=== PATIENT | male | born 1950 | race Caucasian/White ===

== ENCOUNTER 2022-02-23 13:41 | Inpatient (IN) | payer MEDICARE, OTHER, SELFPAY ==
[~2022-02-23] VITALS: Ht 180.3 cm; Wt 82.0 kg
[~2022-02-23 13:41] MED LIST: ALLO100T PO; FLUO20CA39 PO; HYDR-4383 PO; HYDR12.55 PO; LEVO25TA2 PO
[2022-02-23] MEDS ORDERED: albuterol 2.5 MG/3 ML nebule CONTNEB STA (14:52)
[2022-02-23] MEDS ORDERED: methylPREDNISolone sod succ 125mg/2ml vial IV ONE (14:55)
[2022-02-23] MEDS ORDERED: ringers solution, lacted 1,000 ML IV ONE (14:55)
[2022-02-23] MEDS ORDERED: ipratropium 0.5 MG/2.5ML nebule IH ONE (14:55)
[2022-02-23 16:11] LABS: BASOPHILS % (AUTO) 0.3 % (0-1); EOSINOPHILS % (AUTO) 0.1 % (0-6); HEMATOCRIT 47.2 % (42.0-52.0); HEMOGLOBIN 16.1 g/dl (14.0-17.9); LYMPHOCYTES % (AUTO) 7.6 % (21-51); MEAN CORPUSCULAR HEMOGLOBIN 30.6 PG (27.0-31.0); MEAN CORPUSCULAR HGB CONC 34.2 g/dL (33.0-36.5); MEAN CORPUSCULAR VOLUME 89.5 FL (78-98); MEAN PLATELET VOLUME 8.8 FL (7.4-10.4); MONOCYTES # (AUTO) 0.9 X10'3 (0-0.9); MONOCYTES % (AUTO) 6.9 % (2-12); NEUTROPHILS # (AUTO) 11.6 X10'3 (1.8-7.7); NEUTROPHILS % (AUTO) 85.1 % (42-75); PLATELET COUNT 174 X10'3 (140-440); RED BLOOD COUNT 5.27 X10'6 (4.70-6.10); RED CELL DISTRIBUTION WIDTH 14.2 % (11.5-14.5); WHITE BLOOD COUNT 13.6 X10'3 (4.5-11.0)
[2022-02-23 17:14] LABS: APTT 23 SECONDS (22-32); D-DIMER < 0.19 MG/L FEU (0-0.50)
[2022-02-23 17:18] LABS: ALANINE AMINOTRANSFERASE 20 U/L (12-78); ALBUMIN 3.5 G/DL (3.4-5.0); ALKALINE PHOSPHATASE 67 IU/L (46-116); ANION GAP 11 (8-16); ASPARTATE AMINO TRANSFERASE 22 U/L (10-37); BILIRUBIN,TOTAL 0.9 MG/DL (0.1-1.0); BLOOD UREA NITROGEN 30 MG/DL (7-18); BUN/CREATININE RATIO 27.8 (5.4-32.0); CALCIUM 8.9 MG/DL (8.5-10.1); CHLORIDE 102 MMOL/L (99-107); CREATININE 1.08 MG/DL (0.60-1.10); GLUCOSE 118 MG/DL (70-104); MAGNESIUM 1.7 MG/DL (1.5-2.4); PHOSPHORUS 1.3 MG/DL (2.3-4.5); SODIUM 139 MMOL/L (135-145); TOTAL CARBON DIOXIDE 25.7 MMOL/L (24-32); TOTAL PROTEIN 7.1 G/DL (6.4-8.2); eGFR 68 ML/MIN
[2022-02-23 17:20] LABS: POTASSIUM 2.8 MMOL/L (3.5-5.1)
[2022-02-23] MEDS ORDERED: magnesium 2GM in 50ml NS 50 ML IV ONE (17:25)
[2022-02-23] MEDS ORDERED: potassium Cl 10 mEq/100mL bag IV ONE (17:25)
[2022-02-23] MEDS ORDERED: POTASSIUM BICARB 20meq eff tab 20 MEQ TABLET.EFF PO ONE (17:30)
[2022-02-23 19:05] LABS: CLARITY,URINE CLOUDY (Clear); COLOR,URINE YELLOW (Yellow); GLUCOSE, URINE NEGATIVE (Neg); KETONES,URINE 15 mg/dl (Neg); LEUKOCYTE ESTERASE ,URINE NEGATIVE (Neg); NITRITES, URINE NEGATIVE (Neg); OCCULT BLOOD,URINE NEGATIVE (Neg); PROTEIN,URINE TRACE mg/dl (Neg); UROBILINOGEN,URINE 0.2 E.U/dL (0.2-1.0)
[2022-02-23 19:09] LABS: UA COLLECTION TYPE CLN CATCH MIDSTREAM
[2022-02-23 19:14] LABS: WBC,URINE 20-30 /HPF (0-4)
[2022-02-23 19:15] LABS: BACTERIA,URINE 4+ /HPF (Neg); SQUAMOUS EPITHELIAL CELL,UR FEW /LPF (FEW)
[2022-02-23] MEDS ORDERED: potassium Cl 20 mEq SR tablet PO PRN (20:05)
[2022-02-23] MEDS ORDERED: magnesium 4gm in 100ml NS 100 ML IV PRN (20:05)
[2022-02-23] MEDS ORDERED: ondansetron/PF 4mg/2ml inj IV PRN (20:05)
[2022-02-23] MEDS: normal saline 1000ml 1,000 ML IV SCH (20:05)
[2022-02-23] MEDS ORDERED: potassium Cl 40MEQ/1/2NS 520ml 520 ML IV PRN (20:05)
[2022-02-23] MEDS ORDERED: magnesium Cl slow-release 64mg tablet PO PRN (20:05)
[2022-02-23] MEDS ORDERED: REMDESIVIR INJ 200 MG in normal saline 100ml IV soln 100 ML IV ONE (20:15)
[2022-02-23] MEDS: enoxaparin 40mg/0.4ml syringe SUBCUT SCH (21:18)
[2022-02-24] MEDS: normal saline 1000ml 1,000 ML IV SCH ×2 (06:05→16:05)
--- NOTE | 2022-02-24 07:00 | NUR ---
first contact report from kennedi christian for continuation of care. pt is awake ao4 denies cp or sob. resp even unlabored. skin w/d/i pink. iv patent and intact. call light within reach. no acute signs of distress. no complaints at this time.
[2022-02-24 07:06] LABS: BASOPHILS % (AUTO) 0.1 % (0-1); EOSINOPHILS % (AUTO) 0 % (0-6); HEMATOCRIT 43.7 % (42.0-52.0); HEMOGLOBIN 14.8 g/dl (14.0-17.9); LYMPHOCYTES # (AUTO) 0.6 X10'3 (1.1-4.8); LYMPHOCYTES % (AUTO) 5.6 % (21-51); MEAN CORPUSCULAR HEMOGLOBIN 30.6 PG (27.0-31.0); MEAN PLATELET VOLUME 8.5 FL (7.4-10.4); MONOCYTES # (AUTO) 0.4 X10'3 (0-0.9); MONOCYTES % (AUTO) 4.1 % (2-12); NEUTROPHILS # (AUTO) 9.8 X10'3 (1.8-7.7); NEUTROPHILS % (AUTO) 90.2 % (42-75); PLATELET COUNT 179 X10'3 (140-440); RED BLOOD COUNT 4.85 X10'6 (4.70-6.10); RED CELL DISTRIBUTION WIDTH 14.1 % (11.5-14.5); WHITE BLOOD COUNT 10.8 X10'3 (4.5-11.0)
[2022-02-24 07:38] LABS: ALBUMIN 3.1 G/DL (3.4-5.0); ANION GAP 10 (8-16); BLOOD UREA NITROGEN 29 MG/DL (7-18); BUN/CREATININE RATIO 31.9 (5.4-32.0); CALCIUM 8.6 MG/DL (8.5-10.1); CHLORIDE 102 MMOL/L (99-107); CREATININE 0.91 MG/DL (0.60-1.10); GLUCOSE 137 MG/DL (70-104); MAGNESIUM 2.1 MG/DL (1.5-2.4); SODIUM 136 MMOL/L (135-145); TOTAL CARBON DIOXIDE 23.8 MMOL/L (24-32); eGFR 82 ML/MIN
[2022-02-24 08:00] VITALS: BP 129/76
[2022-02-24] MEDS ORDERED: dexamethasone sod phosphate 4mg/ml inj. IV SCH (08:00)
[2022-02-24] MEDS ORDERED: dexamethasone inj 6 MG in dextrose 5%-water 100 ML IV SCH (08:00)
[2022-02-24] MEDS: K and/or MAG REPLACEMENT MC SCH ×2 (08:39→20:00)
[2022-02-24] MEDS: enoxaparin 40mg/0.4ml syringe SUBCUT SCH (09:02)
[2022-02-24 09:38] LABS: C-REACTIVE PROTEIN 0.26 MG/DL (0.0-0.5); CHOLESTEROL 143 MG/DL (0-200); HDL CHOLESTEROL 48 MG/DL (35-60); LDL CHOLESTEROL 74 MG/DL (50-100); TRIGLYCERIDES 79 MG/DL (20-135)
[2022-02-24] MEDS: CefTRIAXone/D5W-Rocephin 1gm 50 ML IV SCH (09:50)
[2022-02-24] MEDS: potassium Cl 20 mEq SR tablet PO PRN ×3 (09:50→19:18)
[2022-02-24] MEDS: acetaminophen 325mg tablet PO PRN ×2 (09:50→19:18)
[2022-02-24 09:57] LABS: HEMOGLOBIN A1C 5.7 % (4.5-6.2)
[2022-02-24] MEDS: dexamethasone inj 6 MG in normal saline 50ml IV soln 50 ML IV SCH ×2 (12:25→19:18)
[2022-02-24 18:00] VITALS: BP 122/68
--- NOTE | 2022-02-24 18:14 | NUR ---
Problems reprioritized. Patient report given, questions answered & plan of care reviewed with BARNDON DRUMMOND.
--- NOTE | 2022-02-24 18:15 | NUR ---
Patient in room [facility]. I have received report from BHANU Ya and had the opportunity to ask questions and assume patient care.
[2022-02-24] MEDS ORDERED: REMDESIVIR 100 MG in NS 100ml IVPB IV SCH (20:00)
[2022-02-24 22:00] VITALS: BP 142/82
[2022-02-24] MEDS ORDERED: temazepam 15mg capsule PO PRN (23:25)
--- NOTE | 2022-02-24 23:28 | NUR ---
notified to request sleeping aid. order received
[2022-02-25] MEDS: normal saline 1000ml 1,000 ML IV SCH ×2 (02:05→05:27)
--- NOTE | 2022-02-25 06:06 | NUR ---
Patient in room [facility]. I have received report from jenny DRUMMOND and had the opportunity to ask questions and assume patient care. Addendum: 02/25/22 at 0639 by Karlee Thayer RN Patient in room [facility]. I have received report from Saba DRUMMOND and had the opportunity to ask questions and assume patient care.
--- NOTE | 2022-02-25 06:31 | NUR ---
Problems reprioritized. Patient report given, questions answered & plan of care reviewed with BHANU Desir.
[2022-02-25 07:00] VITALS: BP 150/82
[2022-02-25 07:50] LABS: BASOPHILS % (AUTO) 0.3 % (0-1); EOSINOPHILS % (AUTO) 0 % (0-6); HEMATOCRIT 42.2 % (42.0-52.0); HEMOGLOBIN 14.1 g/dl (14.0-17.9); LYMPHOCYTES # (AUTO) 0.6 X10'3 (1.1-4.8); LYMPHOCYTES % (AUTO) 4.2 % (21-51); MEAN CORPUSCULAR HEMOGLOBIN 30.6 PG (27.0-31.0); MEAN CORPUSCULAR HGB CONC 33.4 g/dL (33.0-36.5); MEAN CORPUSCULAR VOLUME 91.5 FL (78-98); MEAN PLATELET VOLUME 8.8 FL (7.4-10.4); MONOCYTES # (AUTO) 0.8 X10'3 (0-0.9); MONOCYTES % (AUTO) 5.2 % (2-12); NEUTROPHILS # (AUTO) 13.8 X10'3 (1.8-7.7); NEUTROPHILS % (AUTO) 90.3 % (42-75); PLATELET COUNT 177 X10'3 (140-440); RED BLOOD COUNT 4.61 X10'6 (4.70-6.10); RED CELL DISTRIBUTION WIDTH 14.6 % (11.5-14.5); WHITE BLOOD COUNT 15.3 X10'3 (4.5-11.0)
[2022-02-25 07:58] LABS: D-DIMER < 0.19 MG/L FEU (0-0.50)
[2022-02-25] MEDS: CefTRIAXone/D5W-Rocephin 1gm 50 ML IV SCH (08:22)
[2022-02-25] MEDS: dexamethasone inj 6 MG in normal saline 50ml IV soln 50 ML IV SCH (08:22)
[2022-02-25] MEDS: enoxaparin 40mg/0.4ml syringe SUBCUT SCH (08:22)
[2022-02-25] MEDS ORDERED: LACT1CAP26 PO (08:39)
[2022-02-25] MEDS ORDERED: CEFD300C3 PO (08:39)
[2022-02-25 09:29] LABS: ALBUMIN 2.8 G/DL (3.4-5.0); ANION GAP 9 (8-16); BLOOD UREA NITROGEN 36 MG/DL (7-18); BUN/CREATININE RATIO 35.6 (5.4-32.0); C-REACTIVE PROTEIN 0.07 MG/DL (0.0-0.5); CHLORIDE 109 MMOL/L (99-107); CREATININE 1.01 MG/DL (0.60-1.10); GLUCOSE 123 MG/DL (70-104); LACTATE DEHYDROGENASE 148 U/L (85-227); POTASSIUM 4.4 MMOL/L (3.5-5.1); SODIUM 141 MMOL/L (135-145); TOTAL CARBON DIOXIDE 22.6 MMOL/L (24-32); eGFR 73 ML/MIN
[2022-02-25] MEDS ORDERED: DEXA6TAB PO (10:13)
--- NOTE | 2022-02-25 12:00 | NUR ---
patient appears stable. No O2 needed. . VSS. patient states his main symptom is fatigue. Able to get up to [place] ad [place] . Seen by Dr Mcarthur. All Dc instructions given to patient. patient lives in [place]. states he managed to get his keys to his house as was unsure about this. DC home via [employer] in stable condition 1200hrs
== END 2022-02-25 12:02 | disposition home or self-care (01) | DRG 178 ==
LOC: ER 13:41 → ED HOLD 20:13 → SUR 3N 02-24 07:50
PROVIDERS: ADMIT Internal Medicine; ATTEND Internal Medicine
PROC: XW033E5 Introduction of Remdesivir Anti-infective into Peripheral Vein, Percutaneous Approach, New Technology Group 5 (ICD-10-PCS; principal; 2022-02-23)
DX: U07.1 COVID-19 (principal); N39.0 Urinary tract infection, site not specified; E87.6 Hypokalemia; E03.9 Hypothyroidism, unspecified; E78.00 Pure hypercholesterolemia, unspecified; I10 Essential (primary) hypertension; B96.1 Klebsiella pneumoniae [K. pneumoniae] as the cause of diseases classified elsewhere; J44.9 Chronic obstructive pulmonary disease, unspecified; R09.02 Hypoxemia; F32.A Depression, unspecified; G89.29 Other chronic pain; M10.9 Gout, unspecified; M54.9 Dorsalgia, unspecified; Z90.49 Acquired absence of other specified parts of digestive tract; Z87.891 Personal history of nicotine dependence; Z88.5 Allergy status to narcotic agent
CPT/HCPCS: 36415; 71045; 80048; 80053; 80061; 81001; 83036; 83605; 83615; 83735; 83880; 84100; 84145; 84443; 84484; 85025; 85379; 85730; 86140; 87077; 87081; 87088; 87186; 87502; 87503; 87635; 93005; 94640; 94760; 96361; 96365; 96375; 97110; 97161; 97530; 99285; A4615; C9803; G0378; J0696; J1100; J1650; J2405; J2930; J3475; J3480; J3490; J7030; J7040; J7120